=== PATIENT | female | born 1990 | race Two or more races ===

== ENCOUNTER 2020-10-03 12:00 | Inpatient (IN) | payer OTHER ==
[~2020-10-03] VITALS: Ht 170.2 cm; Wt 4.1 kg
[2020-10-14] MEDS ORDERED: PRENATABS RX T1 EACH PO (05:06)
[2020-10-14] MEDS ORDERED: LEVOTHYROXINE25 MCG PO (05:08)
== END 2020-10-17 13:45 | disposition home or self-care (01) | DRG 787 ==
LOC: O/R 10-14 04:26 → LDR 10-14 04:26 → O/R 10-14 13:30 → SURG-SUITE 10-14 14:45 → LDR 10-16 12:00 → SURG-SUITE 10-17 13:45
PROVIDERS: ADMIT Obstetrics & Gynecology Maternal & Fetal Medicine; ATTEND Obstetrics & Gynecology Maternal & Fetal Medicine
PROC: 4A1HXFZ Monitoring of Products of Conception, Cardiac Rhythm, External Approach (ICD-10-PCS; 2020-10-14)
PROC: 10D00Z1 Extraction of Products of Conception, Low, Open Approach (ICD-10-PCS; principal; 2020-10-14 01:15)
DX: O62.1 Secondary uterine inertia (principal); O99.284 Endocrine, nutritional and metabolic diseases complicating childbirth; E87.1 Hypo-osmolality and hyponatremia; E88.09 Other disorders of plasma-protein metabolism, not elsewhere classified; Z3A.39 39 weeks gestation of pregnancy; Z37.0 Single live birth; Z20.822 Contact with and (suspected) exposure to COVID-19